=== PATIENT | male | born 1935 | race Caucasian/White ===

== ENCOUNTER 2017-09-17 14:07 | Outpatient (RCR) | payer MEDICARE, BC | END 2017-09-18 | disposition home or self-care (01) | LOC: WCC 14:07 | DX: S41.102S Unspecified open wound of left upper arm, sequela (principal); Z79.01 Long term (current) use of anticoagulants; I10 Essential (primary) hypertension; X58.XXXS Exposure to other specified factors, sequela | CPT/HCPCS: G0463 ==

== ENCOUNTER 2017-09-24 13:45 | Outpatient (RCR) | payer MEDICARE, BC | END 2017-10-18 | disposition home or self-care (01) | LOC: WCC 13:45 | DX: S41.102S Unspecified open wound of left upper arm, sequela (principal); X58.XXXS Exposure to other specified factors, sequela; I10 Essential (primary) hypertension; Z79.01 Long term (current) use of anticoagulants | CPT/HCPCS: G0463 ×2 ==